=== PATIENT | male | born 1970 | race Two or more races ===

== ENCOUNTER 2018-02-06 07:15 | Emergency (ER) | payer SELFPAY ==
[~2018-02-06] VITALS: Ht 165.1 cm; Wt 68.0 kg
[2018-02-06 07:23] VITALS: BP 164/85; Ht 165.1 cm; Wt 68.0 kg
== END 2018-02-06 07:53 | disposition home or self-care (01) ==
LOC: ED 07:15
DX: S39.012A Strain of muscle, fascia and tendon of lower back, initial encounter (principal); E11.9 Type 2 diabetes mellitus without complications; V49.9XXA Car occupant (driver) (passenger) injured in unspecified traffic accident, initial encounter; Y93.I9 Activity, other involving external motion; Y92.413 State road as the place of occurrence of the external cause; Y99.8 Other external cause status